=== PATIENT | female | born 1965 | race Caucasian/White ===

== ENCOUNTER 2024-06-05 11:49 | Emergency (ER) | payer OTHER ==
[~2024-06-05] VITALS: Ht 167.6 cm; Wt 68.0 kg
[2024-06-05 11:55] VITALS: BP 148/69
[2024-06-05 12:01] VITALS: BP 143/78
[2024-06-05 12:17] VITALS: BP 125/107
[2024-06-05] MEDS ORDERED: PERCOCET 5/325M1 TAB PO (12:23)
[2024-06-05 12:30] VITALS: BP 123/67
[2024-06-05 12:45] VITALS: BP 128/88
[2024-06-05 13:00] VITALS: BP 119/67
== END 2024-06-05 12:51 | disposition home or self-care (01) | DRG 563 ==
LOC: ED 11:49
DX: S52.502A Unspecified fracture of the lower end of left radius, initial encounter for closed fracture (principal); W01.0XXA Fall on same level from slipping, tripping and stumbling without subsequent striking against object, initial encounter